=== PATIENT | female | born 1980 | race Caucasian/White ===

== ENCOUNTER 2016-04-21 02:47 | Observation (INO) | payer OTHER ==
[~2016-04-21 02:47] MED LIST: CHOL10008 PO; CYCL5TAB PO; GLU500 PO; IBUP200T48 PO; NAPR500T PO; PER5A PO; RES15 PO; SPIRONALACTONE PO; SULF-222 PO; TAM4 PO; WELLBUTRIN PO; [UNRECOGNIZED DRUG - CODE] PO; [UNRECOGNIZED DRUG - CODE] PO; [UNRECOGNIZED DRUG - OTHER]
[2016-04-21 03:24] LABS: APPEARANCE,URINE HAZY (CLEAR,HAZY); COLOR,URINE YELLOW (YELLOW); OCCULT BLOOD,URINE MODERATE (NEGATIVE); PH,URINE 6.5 (5.0-8.0); UROBILINOGEN,URINE NORMAL (NORMAL)
[2016-04-21] MEDS ORDERED: Betameth Ace-Betam SodPhos 6 mg/mL 5 mL Inj ONE (03:58)
[2016-04-21] MEDS ORDERED: Betameth Ace-Betam SodPhos 6 mg/mL 5 mL Inj IM ONE (04:00)
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
--- NOTE | 2016-04-21 09:37 | DRSVH ---
PROCEDURE: US OB PLACENTA EVALUATION LIMITED INDICATIONS: PLACENTA LOCATION RULE OUT PREVIA OUTSIDE/PRIOR DATING DATA: Last menstrual period (LMP): 11/13/15. LMP-based estimated date of delivery (PATEL): 08/18/16. First dating scan (date and location): 12/29/15. Estimated date of delivery (PATEL) from first dating scan: 08/17/16. TECHNIQUE: Real-time scanning was performed of the fetus, with image documentation and biometric measurements. COMPARISON: [facility], [facility], 04/15/2016, 7:18. FINDINGS: General: A single living intrauterine gestation is present. Presentation: Breech is. Placenta: Placental position is posterior, without previa. 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 Pelvis and Uterus Cervix Length: 3.15 cm Other: Not applicable. IMPRESSION: 1. Single living intrauterine gestation redemonstrated. 2. No placental previa or abruption. Dictated by: Bakari Gunter [facility] Interpreted: Teri Menendez MD on 04/21/2016 at 9:36 Transcribed by: JASMIN on 04/21/2016 at 9:36 Approved by: Teri Menendez MD, PhD on 04/21/2016 at 17:05
== END 2016-04-21 04:39 | disposition short-term general hospital (02) ==
LOC: FBCO 02:47 → FBC 03:50 → INTOOBSV 03:50
PROVIDERS: ADMIT Obstetrics & Gynecology; ATTEND Obstetrics & Gynecology
PROC: 3E023GC Introduction of Other Therapeutic Substance into Muscle, Percutaneous Approach (ICD-10-PCS; principal; 2016-04-21)
DX: O60.02 Preterm labor without delivery, second trimester (principal); O45.92 Premature separation of placenta, unspecified, second trimester; Z3A.23 23 weeks gestation of pregnancy
CPT/HCPCS: 76815; 81000; 86850; 87086; 87088; G0378; G0463